=== PATIENT | female | born 1985 | race Caucasian/White ===

== ENCOUNTER 2016-10-20 21:17 | Emergency (ER) | payer OTHER ==
[~2016-10-20] VITALS: Ht 172.7 cm; Wt 77.1 kg
--- NOTE | 2016-10-20 21:20 | NUR ---
Patient to ER bed 05 to gown for evaluation. Side rails up.
[2016-10-20 21:26] VITALS: BP 131/79; PULSE 75; RESP 14; TEMP 97.9; O2SAT 98
--- NOTE | 2016-10-20 21:26 | NUR ---
Dr Ayala at bedside examining patient
--- NOTE | 2016-10-20 21:26 | NUR ---
Pt brought by ACLS, per paramedics pt took a handful of citalopram 10 mg ,paramedics found 12 pills on the floor, skin pink and warm, cap refill <3, VSS ,respirations even and unlabored, pt denies N/V or chest pain, pedal and radial pulses equal and strong, pt follows commands, pt denies suicidal ideation, denies wanting to hurt others.
--- NOTE | 2016-10-20 21:26 | NUR ---
Called Poison Control at [phone] . Per recommendations: if consumption more than one hour ago ,skip charcoal, monitor pt for 6 hours, if less than citalopram 80 mg consumption and monitor for 12 hours if >100 mg of citalopram consumption, monitor for confusion,seizures ,nausea and vomiting, QTC prolongation and QRS prolongation, if QTC prolongation treat with electrolytes ,if QRS prolongation treat with Bicarb, if seizures manage with Benzos (Ativan and Valium),check for tylenol,aspirin,ethanol and BMP levels. Dr Ayala notified, Will continue to monitor patient.
--- NOTE | 2016-10-20 22:10 | NUR ---
Pt's and municipal maintenance worker at bedside
[2016-10-20 22:32] LABS: ANION GAP 2 (5-15); CHLORIDE 107 mmol/L (98-107); CREATININE 0.82 mg/dL (0.55-1.30); GLUCOSE 100 mg/dL (70-99); POTASSIUM 3.6 mmol/L (3.5-5.1); SODIUM SERUM 139 mmol/L (136-145); UREA NITROGEN, BLOOD 11 mg/dL (8-21)
[2016-10-20 22:33] LABS: BASOPHILS # (AUTO) 0.1 K/uL (0.0-0.2); BASOPHILS % (AUTO) 0.8 % (0.0-2.0); EOSINOPHILS # (AUTO) 0.2 K/uL (0.0-0.4); EOSINOPHILS % (AUTO) 2.7 % (0.0-4.0); HEMOGLOBIN 13.4 g/dL (12.0-16.0); LYMPHOCYTES # (AUTO) 1.8 K/uL (1.0-5.5); LYMPHOCYTES % (AUTO) 27.9 % (20.5-51.5); MEAN CORPUSCULAR HEMOGLOBIN 30 pg (27-31); MEAN CORPUSCULAR HGB CONC 34 % (32-36); MEAN CORPUSCULAR VOLUME 86 fL (79.0-98.0); MONOCYTES # (AUTO) 0.3 K/uL (0.0-1.0); MONOCYTES % (AUTO) 5.1 % (1.7-9.3); NEUTROPHILS % (AUTO) 63.5 % (40.0-70.0); PLATELET COUNT (AUTO) 228 K/uL (130-430); RED BLOOD CELL COUNT(AUTO) 4.52 MIL/uL (4.2-6.2); RED CELL DISTRIBUTION WIDTH 12.8 % (9.0-15.0); WHITE BLOOD COUNT (AUTO) 6.4 K/uL (4.8-10.8)
[2016-10-20 22:37] LABS: ALANINE AMINOTRANSFERASE 30 U/L (12-78); ASPARTATE AMINOTRANSFERASE 22 U/L (10-37); TOTAL BILIRUBIN 0.3 mg/dL (0.0-1.0); TOTAL PROTEIN, SERUM 7.9 g/dL (6.4-8.3)
[2016-10-20 22:38] LABS: GFR AFRICAN AMERICAN 105 mL/min (>90); SALICYLATE < 1 mg/dL (3-30)
[2016-10-20 22:39] LABS: ALCOHOL, BLOOD < 3 mg/dL (<10)
[2016-10-20 22:42] LABS: BILIRUBIN,URINE NEGATIVE (NEGATIVE); BLOOD, URINE 1+ (NEGATIVE); CLARITY/URINE CLEAR (CLEAR); COLOR,URINE YELLOW (YELLOW); GLUCOSE,URINE NEGATIVE (NEGATIVE); KETONES,URINE NEGATIVE (NEGATIVE); LEUKOCYTE ESTERASE ,URINE TRACE (NEGATIVE); NITRITE, URINE NEGATIVE (NEGATIVE); PH,URINE 6.5 (5.0-8.0); PROTEIN URINE NEGATIVE (NEGATIVE); UROBILINOGEN,URINE 0.2 (0.2-1.0)
[2016-10-20 22:54] LABS: ACETAMINOPHEN < 1 ug/mL (1-30)
[2016-10-20 22:58] LABS: BACTERIA,URINE FEW /HPF (None Seen); MUCUS,URINE None Seen /LPF (None Seen); RBC,URINE 0-3 /HPF (0-3); WBC,URINE 0-3 /HPF (0-3)
--- NOTE | 2016-10-20 23:06 | NUR ---
Patient in hospital gown. Personal belongings removed from room and stored . Pt wanded by security . Will continue to monitor.
--- NOTE | 2016-10-20 23:08 | NUR ---
Report given to Josh BARRON
[2016-10-20 23:09] LABS: BARBITURATE, URINE NEGATIVE (NEG <=200); BENZODIAZEPINE, URINE NEGATIVE (NEG <=150); CANNABINOID, URINE NEGATIVE (NEG <=50); COCAINE, URINE NEGATIVE (NEG <=150); METHAMPHETAMINES SCREEN,URINE NEGATIVE (NEG <=500); OPIATE, URINE NEGATIVE (NEG <=100); PHENCYCLIDINE SCREEN,URINE NEGATIVE (NEG <=25); UR TRICYCLIC ANTIDEPRESSANTS NEGATIVE (NEG <=300); URINE AMPHETAMINE NEGATIVE (NEG <=500); URINE METHADONE NEGATIVE (NEG <=200); URINE OXYCODONE SCREEN NEGATIVE (NEG <=100); URINE PROPOXYPHENE SCREEN NEGATIVE (NEG <=300)
--- NOTE | 2016-10-20 23:25 | NUR ---
AND LADY FRIEND AT BEDSIDE.
[2016-10-21 01:20] VITALS: BP 120/70; PULSE 75; RESP 18; TEMP 97.9; O2SAT 97
--- NOTE | 2016-10-21 01:20 | NUR ---
Patient to be transferred to [facility] [place]. Is being transferred due to higher level of care. Receiving facility has accepting physician and available space. ER physician has signed transfer form. Patient or responsible alliance party has agreed to transfer and signed form. Patient belongings inventoried and will be sent with patient. Copy of nursing notes, lab reports, EKG, Physicians Orders and X-rays to be sent with patient. Report called to ROSA BARRON at receiving facility. Receiving physician is DR RODRIGUEZ. [facility] ambulance service has been called for transfer. .
== END 2016-10-21 01:20 | disposition short-term general hospital (02) ==
LOC: SED 21:17
DX: T43.221A Poisoning by selective serotonin reuptake inhibitors, accidental (unintentional), initial encounter (principal); Y92.89 Other specified places as the place of occurrence of the external cause
CPT/HCPCS: 36415; 80053; 80307; 81000; 81025; 85025; 87086; 93005; 99285; G0480; G0481; G0482